=== PATIENT | male | born 1965 | race Caucasian/White ===

== ENCOUNTER 2023-12-10 07:02 | Emergency (ER) | payer OTHER, SELFPAY ==
[2023-12-10 07:19] VITALS: BP 123/65
--- NOTE | 2023-12-10 07:27 | ED.GENMED ---
History of Present Illness
General
Chief Complaint: Fainting/Passed Out
Time Seen by Provider: 12/10/23 07:26
History of Present Illness
History of Present Illness:
58-year-old male with coronary artery disease (14 days status post CABG done at the [facility]) presents to the emergency department for evaluation after a syncopal event and subsequent fall. He states he woke up early this morning
to use the bathroom, while ambulating to the restroom he began to feel lightheaded. Upon attempting to return to bed he syncopized and struck his head and face against the bedside table. No witnessed seizure activity by his spouse. He currently
denies any complaints with exception of pain and swelling to the right lower lip and jaw. He notes that his inner right lower lip appears to be impaled with his right lower canine. Denies any headaches or vision changes, denies neck pain or
extremity paresthesias. Notes that he is on metoprolol post op, was not on this medication pre op. Additionally he is on Plavix
Review of Systems
Review of Systems
Allergies reviewed?: Yes
All Other Systems: ROS reviewed and negative except as documented in HPI and ROS
Phy Exam
Physical Exam
Physical Exam:
GEN: Well appearing, NAD, WDWN
HEENT: Ecchymosis to the R lateral orbit, no crepitus or deformity. Swelling w/ ecchymosis to the R lower lip/jaw. 1.5cm laceration to inner R lower buccal mucosa, no frenulum involvement. Oral mucosa moist. No midline C spine tenderness
Cardiac: Regular rate
Lung: No respiratory distress, no tachypnea
MSK: No gross deformity or injuries
Skin: Good color, no pallor or jaundice, no rashes
Neuro: AO x3; CN II-XII grossly intact. BUE strength 5/5 in all kellogg, sensation intact and symmetric. BLE strength 5/5 in all kellogg, sensation intact and symmetric
Psych: Calm, cooperative
Course
Orders/Labs/Results
Orders:
Orders
12/10/23 07:06
EKG [Electrocardiogram (*1)] Urgent
Reason for Study: Syncope
EKG- Treatment ONCE
12/10/23 07:39
Complete Blood Count/With Diff Urgent
Comprehensive Metabolic Panel Urgent
12/10/23 07:41
CT Head W/o Iv Contrast Urgent
Comment:
Reason For Exam: fall, head injury, on Plavix
Abnormal Lab Results
12/10/23
07:39
RBC 4.37 L 10^6/uL
(4.70-6.10)
Hgb 12.4 L g/dL
(13.0-18.0)
Hct 36.4 L %
(39.0-52.0)
Plt Count 546 H 10^3/uL
(130-400)
Abs Immat Gran (auto) 0.1 H 10^3/uL
(0-0.05)
Absolute Monos (auto) 0.8 H 10^3/uL
(0.1-0.6)
Immature Gran % 0.7 H %
(0-0.5)
Monocytes % 10.5 H %
(1.7-9.3)
BUN 24 H mg/dl
(9-20)
Glucose 112 H mg/dl
(70-99)
12/10/23 07:39
12/10/23 07:39
Vital Signs
Initial and Last Documented VS:
Initial Vital Signs
Temp Pulse Resp BP Pulse Ox
98.3 F 60 16 123/65 98
12/10/23 07:19 12/10/23 07:19 12/10/23 07:19 12/10/23 07:19 12/10/23 07:19
Last Documented Vital Signs
Temp Pulse Resp BP Pulse Ox
98.3 F 65 15 126/78 98
12/10/23 07:19 12/10/23 08:15 12/10/23 08:15 12/10/23 08:00 12/10/23 07:19
MDM/Problems Addressed
MDM/Problems Addressed:
58-year-old male presents after likely vasovagal syncopal event. He is newly on beta-blockers and awoke from sleep causing the syncopal event. His labs are reassuring, CT of the head was obtained due to current dual antiplatelet use and this
showed no evidence for hemorrhage. The intraoral laceration was reviewed with behavioral therapy coordinator at this time no intervention is recommended with the exception of prophylactic antibiotics and salt water rinses.
Comment
Comment:
EKG independently interpreted by me shows a normal sinus rhythm at a rate of 66, there is slight ST depression and T wave inversions in lead I and aVL, no priors for comparison
*Critical Care Note
Total Time (30-74mins, 75-104mins- exclusive of procedures): Not Applicable
ED Attending Note
-
Portions of this chart may have been created with voice recognition software.� Occasional wrong word or��sound alike� substitutions may have occurred due to the inherent limitations of voice recognition software.
Discharge Plan
Departure
Patient Disposition: Home (Routine Discharge)
Date of Disposition: 12/10/23
Time of Disposition: 09:11
Patient with high blood pressure during this ER visit?: No
Discharge Problem:
Syncope, vasovagal, Laceration of buccal mucosa, Closed head injury
Instructions: Syncope (Fainting) (DC)
Prescriptions:
New
amoxicillin-pot clavulanate 875-125 mg tablet
1 tab PO BID Qty: 14 0RF
Referrals:
Norm Monique, DO [Family Provider] -
Activity Restrictions/Additional Instructions:
Rinse the mouth with salt water at least 5 times daily, particularly after meals
Interventions
Interventions:
*Risk Screen - Suicide Last Done: 12/10/23 07:19
*General Assessment Last Done: 12/10/23 07:19
*Neglect/Abuse Screening Last Done: 12/10/23 07:19
ED- Fall Risk Assessment Last Done: 12/10/23 09:24
*ED COVID-19 Vaccine History Last Done: 12/10/23 09:24
*Nursing Disposition Last Done: 12/10/23 09:24
ED- Cardiac Assessment Last Done: 12/10/23 07:42
ED- Neurological Assessment Last Done: 12/10/23 07:42
Discharge Date and Time
Discharge Date/Time: 12/10/23 09:24
Print Language: SLOVENIAN
[2023-12-10 07:53] LABS: % Basophils 1.1 % (0-2); % Eosinophils 4.9 % (0-6); % Immature Granulocytes 0.7 % (0-0.5); % Lymphocytes 25.7 % (20.5-51.1); % Monocytes 10.5 % (1.7-9.3); % Neutrophils 57.1 % (42.2-75.2); Absolute Basophils 0.1 10^3/uL (0-0.2); Absolute Eosinophils 0.4 10^3/uL (0-0.7); Absolute Immature Granulocytes 0.1 10^3/uL (0-0.05); Absolute Lymphocytes 1.8 10^3/uL (1.2-3.4); Absolute Monocytes 0.8 10^3/uL (0.1-0.6); Absolute Neutrophils 4.1 10^3/uL (1.4-6.5); Hematocrit 36.4 % (39.0-52.0); Hemoglobin 12.4 g/dL (13.0-18.0); Mean Corp Hgb Conc. 34.1 g/dL (33.0-37.0); Mean Corpuscular Hgb 28.4 pg (27.0-31.0); Mean Corpuscular Volume 83.3 fL (80.0-94.0); Mean Platelet Volume 9.5 fL (7.4-10.4); Nucleated Red Blood Cells % 0 % (-); Platelet Count 546 10^3/uL (130-400); Red Blood Cell Count 4.37 10^6/uL (4.70-6.10); Red Cell Dist. Width 13.3 % (11.5-14.5); White Blood Cell Count 7.2 10^3/uL (4.8-10.8)
[2023-12-10 08:00] VITALS: BP 126/78
[2023-12-10 08:03] LABS: ALT (SGPT) 25 U/L (0-50); AST (SGOT) 28 U/L (17-59); Albumin 4.1 g/dl (3.5-5.0); Alkaline Phosphatase 117 U/L (38-126); Blood Urea Nitrogen 24 mg/dl (9-20); Calcium 9.6 mg/dl (8.4-10.2); Carbon Dioxide 28 mmol/L (22-30); Chloride 105 mmol/L (98-107); Glucose 112 mg/dl (70-99); Potassium 4.7 mmol/L (3.5-5.1); Sodium 140 mmol/L (135-145); Total Bilirubin 0.6 mg/dl (0.2-1.3); Total Protein 6.7 g/dl (6.3-8.2); eGFR > 60.00
== END 2023-12-10 09:24 | disposition home or self-care (01) ==
LOC: EMR 07:02
PROVIDERS: Physician Assistant; EMERGENCY PHYSICIAN Emergency Medicine; FAMILY PHYSICIAN Family Medicine
DX: R55 Syncope and collapse (principal); S01.512A Laceration without foreign body of oral cavity, initial encounter; S09.90XA Unspecified injury of head, initial encounter; W19.XXXA Unspecified fall, initial encounter; I25.10 Atherosclerotic heart disease of native coronary artery without angina pectoris; Z79.02 Long term (current) use of antithrombotics/antiplatelets; Z95.1 Presence of aortocoronary bypass graft
CPT/HCPCS: 99284; 70450; 80053; 85025; 93005